=== PATIENT | male | born 1960 | race Caucasian/White ===

== ENCOUNTER 2023-06-15 07:11 | Observation (INO) ==
--- NOTE | 2023-05-18 14:56 | PAT Medication Instructions ---
Medication Instructions Date of Service May 18, 2023 Home Medications Medication Instructions Recorded Gato Gutierrez #1 ea 07/21/22 meloxicam 15 mg tablet 15 mg PO DAILY PRN Pain simethicone 125 mg capsule 125 mg PO DAILY PRN Gi Upset Glucosamine Chondroitin 2 tab PO QAM Metamucil 1 dose PO QAM cholecalciferol (vitamin D3) 50 mcg (2,000 unit) capsule (Vitamin D3) 100 mcg PO QAM cyanocobalamin (vitamin B-12) 3,000 mcg sublingual tablet 6,000 mcg sublingual QAM diphenhydramine 25 mg-acetaminophen 500 mg tablet (Tylenol PM Extra Strength) 2 tab PO HS PRN Pain glucosam-sod chondro-vit C-zita tablet 1 tab PO QAM multivitamin 1 tab PO QAM turmeric 400 mg capsule 500 mg PO QAM ASK your surgeon for instructions meloxicam 15 mg tablet 15 mg PO DAILY PRN Pain STOP taking 2 weeks before surgery (or as soon as possible if surgery is within 2 weeks) Glucosamine Chondroitin 2 tab PO QAM glucosam-sod chondro-vit C-zita tablet 1 tab PO QAM turmeric 400 mg capsule 500 mg PO QAM DO NOT take the morning of surgery simethicone 125 mg capsule 125 mg PO DAILY PRN Gi Upset Metamucil 1 dose PO QAM cholecalciferol (vitamin D3) 50 mcg (2,000 unit) capsule (Vitamin D3) 100 mcg PO QAM cyanocobalamin (vitamin B-12) 3,000 mcg sublingual tablet 6,000 mcg sublingual QAM multivitamin 1 tab PO QAM Take evening before surgery simethicone 125 mg capsule 125 mg PO DAILY PRN Gi Upset (if needed) diphenhydramine 25 mg-acetaminophen 500 mg tablet (Tylenol PM Extra Strength) 2 tab PO HS PRN Pain (if needed) Other Notes NOTHING TO EAT OR DRINK AFTER MIDNIGHT If you have any questions please call us at [phone] or [phone] or [phone] or [phone]
--- NOTE | 2023-05-21 08:20 | Anesthesiology Consultation ---
Date of Service May 21, 2023 Assessment & Plan (1) Encounter for pre-operative examination: - Infectious disease screening: Per assessment on 05/21/23: No known infectious disease contacts or current infectious disease symptoms. No noted recent Covid positive test. - Outpatient joint assessment: Pt currently scheduled for inpatient pathway. If surgeon requests review for outpatient joint pathway, patient is an acceptable candidate for outpatient joint program from anesthesia standpoint pending surgeon's office assessment that patient is motivated, has good support and completes [facility] Program preop requirements. Chart Review Chart Review: Acceptable Risk for Surgery and Patient seen in Pre Admission Testing Teaching & Discussion Pre-Anesthesia Teaching/Discussion Notes: Instructed NPO after midnight before surgery,except medications with 15 cc of water. Medication instructions provided according to the PAT guidelines. History Surgery Operation Date: 06/15/23 10:40 Proposed Procedures p Right Total Knee Arthroplasty - Jhonny Raza MD Height/Weight Height: 6 ft 2 in Weight: 95.1 kg Allergies Allergy/AdvReac Type Severity Reaction Status Date / Time No Known Allergies Allergy Verified 05/17/23 15:35 Medications Home Medications Medication Instructions Recorded Confirmed Last Taken Wheeled Walker #1 ea 07/21/22 04/02/23 Unknown meloxicam 15 mg tablet 15 mg PO DAILY PRN Pain 07/21/22 05/17/23 Unknown simethicone 125 mg capsule 125 mg PO DAILY PRN Gi Upset 07/21/22 05/17/23 Unknown Glucosamine Chondroitin 2 tab PO QAM 05/17/23 05/17/23 Unknown Metamucil 1 dose PO QAM 05/17/23 05/17/23 Unknown cholecalciferol (vitamin D3) 50 100 mcg PO QAM 05/17/23 05/17/23 Unknown mcg (2,000 unit) capsule (Vitamin D3) cyanocobalamin (vitamin B-12) 6,000 mcg sublingual QAM 05/17/23 05/17/23 Unknown 3,000 mcg sublingual tablet diphenhydramine 25 2 tab PO HS PRN Pain 05/17/23 05/17/23 Unknown mg-acetaminophen 500 mg tablet (Tylenol PM Extra Strength) glucosam-sod chondro-vit C-zita 1 tab PO QAM 05/17/23 05/17/23 Unknown tablet multivitamin 1 tab PO QAM 05/17/23 05/17/23 Unknown turmeric 400 mg capsule 500 mg PO QAM 05/17/23 05/17/23 Unknown Past Medical History Medical History Chronic back pain Spinal stenosis Osteoarthritis History of basal cell carcinoma (BCC) Hearing deficit BL BUSBY Sleep apnea CPAP (compliant) Exercise / Class Metabolic Activity II 4-5 Yardwork/Stairs/Walk up hill Past Family History Family History Other Rheumatoid arthritis Past Surgical History Surgical History History of tonsillectomy History of esophagogastroduodenoscopy (EGD) History of colonoscopy History of Mohs micrographic surgery for skin cancer H/O wrist surgery Right x 2 Past Anesthesia History No Hx of Anesthesia Complications and No Family Hx of Anesthesia Complications History of PONV No Hx of PONV and No Hx of Motion Sickness Social History Smoking Status: Never smoker Do You Dip or Chew Tobacco: No Hx Alcohol Use: Yes (Occasional glass of wine) Alcohol type: wine alcohol intake frequency: a few times a week Hx Substance Use: No substance use type: does not use Review of Systems Patient denies chest pain, shortness of breath, dyspnea on exertion, fever, chills, cough, wheezing, palpitations. Physical Exam Vital Signs VITALS BP 110/70 P 67 TEMP 98.4 SP02 96%RA RESP 18 PHYSICAL Full cervical extension range of motion. Full TMJ range of motion. TMD 3 finger breaths Mallampati Score 3 Lungs: clear throughout to auscultation Cardiac: regular rate and rhythm, no murmurs noted Spine: normal Carotid arteries: negative bruit Extremities: no LE edema Lab Results Anesthesia Preop Results Results Anesthesia Widget: PT 10.4 Seconds (9.0-12.0) 05/21/23 PTT 29 Seconds (21-31) 05/21/23 INR 0.9 (0.9-1.1) 05/21/23 Blood Type A Negative 05/21/23 Antibody Screen NEGATIVE 05/21/23 Testing Laboratory Results 05/11/23 WBC 4.2 H/H 15.2/45.9 PLATELETS 207 SODIUM 140 POTASSIUM 4.1 CHLORIDE 105 CO2 28 BUN 16 CREATININE 0.9 GLUCOSE 110 HGBA1C 5.9% Electrocardiogram Date: 05/16/23 Findings: + NSR @ (76) Chest X-Ray Date: 09/09/22 FINDINGS: No lines and tubes are seen. The cardiomediastinal silhouette is normal. The lungs are clear. No evidence of pleural effusion or pneumothorax. IMPRESSION: No acute abnormalities and in particular no radiographic evidence of pneumonia.
--- NOTE | 2023-06-09 09:02 | History & Physical Report ---
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 He has failed conservative measures. He was scheduled for knee replacement in the past but canceled due to COVID. He now like to proceed with right knee replacement. Plan: Orgran taken the operative right total knee replacement. The risks Mente this procedure explained the patient clued but not limited to DVT PE infection neurological and vascular bleeding palm pain limb range of motion sepsis fairly with symptoms incomplete relief of symptoms need for further surgery in the future. Patient understands and desires to proceed. Informed consent was obtained. Will plan on DVT prophylaxis utilizing thigh-high teds, SCDs, baby aspirin twice a day. He does use CPAP and he will bring that with him to the hospital. History of Present Illness Chief Complaint: . Persistent bilateral knee pain discomfort right side greater than left. Primary Care Provider: Amadeo Story NP-C . Patient is a 63-year-old gentleman who is retired from the [employer] who presents for further management of his knees. Discussed a long history of bilateral knee pain discomfort right side greater than left. He has been through extensive conservative treatment which is just has not helped. He was actually scheduled for surgery last July but canceled due to COVID illness. He then did a bit better for a while but now his symptoms have returned significantly. Describes global pain in his knee. Increased with weightbearing. He reports some intermittent instability as well. The right knee is quite a bit worse than the left. He now like to proceed with right knee replacement. Allergies Allergy/AdvReac Type Severity Reaction Status Date / Time No Known Allergies Allergy Verified 05/17/23 15:35 Home Medications Medication Instructions Recorded Confirmed Type Wheeled Walker #1 ea 07/21/22 04/02/23 Rx meloxicam 15 mg tablet 15 mg PO DAILY PRN Pain 07/21/22 05/17/23 History simethicone 125 mg capsule 125 mg PO DAILY PRN Gi Upset 07/21/22 05/17/23 History Glucosamine Chondroitin 2 tab PO QAM 05/17/23 05/17/23 History Metamucil 1 dose PO QAM 05/17/23 05/17/23 History cholecalciferol (vitamin D3) 50 100 mcg PO QAM 05/17/23 05/17/23 History mcg (2,000 unit) capsule (Vitamin D3) cyanocobalamin (vitamin B-12) 6,000 mcg sublingual QAM 05/17/23 05/17/23 History 3,000 mcg sublingual tablet diphenhydramine 25 2 tab PO HS PRN Pain 05/17/23 05/17/23 History mg-acetaminophen 500 mg tablet (Tylenol PM Extra Strength) glucosam-sod chondro-vit C-zita 1 tab PO QAM 05/17/23 05/17/23 History tablet multivitamin 1 tab PO QAM 05/17/23 05/17/23 History turmeric 400 mg capsule 500 mg PO QAM 05/17/23 05/17/23 History Past Med/Surg History Medical History Chronic back pain Spinal stenosis Osteoarthritis History of basal cell carcinoma (BCC) Hearing deficit BL BUSBY Sleep apnea CPAP (compliant) Surgical History History of tonsillectomy History of esophagogastroduodenoscopy (EGD) History of colonoscopy History of Mohs micrographic surgery for skin cancer H/O wrist surgery Right x 2 Family History Other Rheumatoid arthritis Social History Smoking Status: Never smoker Second Hand Exposure: No; Do You Dip or Chew Tobacco: No; Hx Alcohol Use: Yes (Occasional glass of wine) Alcohol type: wine Hx Substance Use: No Preferred Language: Mozambican Communication Ability: Effective Wastewater Project Manager Required: No Beliefs That Will Affect Care: None Current Living Situation: Spouse Feels Safe at Home: Yes Safety Concerns: Feels Safe At This Time Assistive Devices: Contacts, Glasses and Hearing Aid - Bilateral Review of Systems All systems reviewed & are unremarkable except as noted in HPI & below. Physical Exam . Physical examination was a pleasant healthy middle-age male. Today looks to be in good health. Examination of the knees reveal patient ambulates with a varus alignment to his knee. Fairly minimal limp. Examination of the right knee reveals a varus alignment with a tender is over the medial joint line. Small knee effusion. Little bit of bony hypertrophy medially. Range of motion is 5-1 20. No instability. No pain with hip motion for examination left knee reveals a similar varus alignment. Tenderness tenderness medially. Small bony hypertrophy medially. Small knee effusion. Range of motion 5-1 25. No instability. Constitutional WD/WN, vitals as above Neck trachea midline, no thyromegaly Respiratory normal respiratory effort, lungs clear to auscultation Cardiovascular RRR, no murmur, no edema Gastrointestinal (Abdomen) normal bowel sounds, soft, nontender, no hepatosplenomegaly Results & Data Results & Data Laboratory Results . Diagnostic Findings . X-rays due to both knees which show advanced bilateral knee arthritis. Got complete loss of medial joint space. The right side is a bit worse than the left. Osteophytes primarily medially. Some subchondral sclerosis as well. PG Care Time/CCT Total # of Minutes Spent Total Time Spent with Patient: Total time spent is greater than 50% in coordination of care (as documented) at patient's floor/unit and/or counseling patient: Coding Level of Care Code None Diagnoses Degenerative arthritis of knee, bilateral M17.0
[~2023-06-15 07:11] MED LIST: ACETAMINOPHEN 500 MG TAB PO SCH; BUPIVACAINE 0.5 % 5 MG/1 ML PF 10ML VIAL ONE; BUPIVACAINE LIPOSOME/PF 266 MG, BUPIVACAINE/EPINEPHRINE 50 ML, SODIUM CHLORIDE 0.9% PF ... INFIL SCH; CeleBREX 200 MG CAP PO SCH; EPINEPHrine INJ 1 MG/ML AMP ONE; FAMOTIDINE 20 MG TAB PO SCH; LR 500ML BOLUS, THEN 15ML/HR IV SCH; LR 60ML/HR IV SCH; METOCLOPRAMIDE HCL 10 MG TABLET PO SCH; ROPIVACAINE 0.5% 5 MG/ML 30 ML VIAL ONE; Scopolamine 1 MG TDSY TD SCH; TRANEXAMIC ACID 1,000 MG **IV Intra-op IV SCH; ceFAZolin 2000MG 2,000 MG/15 ML SYR IV SCH
[2023-06-15] MEDS ORDERED: PROPOFOL IV EMULSION 10 MG/ML 20 ML VIAL IV ONE (07:43)
[2023-06-15] MEDS ORDERED: LIDOCAINE 2% 2 ML VIAL/AMP(20MG/ML) INFIL ONE (08:07)
[2023-06-15] MEDS ORDERED: MIDAZOLAM HCL 1 MG/ML 2ML VIAL ONE (08:46)
[2023-06-15] MEDS ORDERED: fentaNYL citrate PF 100 MCG/2 ML VIAL ONE (08:47)
--- NOTE | 2023-06-15 08:52 | History & Physical Bridge Note ---
Date of Service June 15, 2023 History & Physical Bridge Note I have examined the patient, reviewed the History & Physical and in the interval since the performance of the History & Physical I have noted the following changes of clinical significance: no changes noted
[2023-06-15] MEDS ORDERED: SODIUM CHLORIDE 0.9% PF 50 ML VIAL ONE (08:59)
[2023-06-15] MEDS ORDERED: BUPIVACAINE/EPINEPHRINE 0.25% 1:200,000 30 ML VIAL ONE (08:59)
[2023-06-15] MEDS ORDERED: BUPIVACAINE LIPOSOME 1.3% 266 MG/20 ML VIAL ONE (09:00)
[2023-06-15] MEDS ORDERED: ONDANSETRON INJ 2 MG/ML 2 ML VIAL ONE (09:35)
[2023-06-15] MEDS ORDERED: ATROPINE SULFATE 0.1 MG/ML 10ML SYR IV PRN (10:05)
[2023-06-15] MEDS ORDERED: NALOXONE HCL 0.4 MG/1 ML VIAL/CARP IV PRN ×2 (10:05→12:41)
[2023-06-15] MEDS ORDERED: HYDROmorphone INJ 1 MG/ML SYRINGE IV PRN (10:05)
[2023-06-15] MEDS ORDERED: ePHEDrine sulfate 50 MG/ML AMP IV PRN (10:05)
[2023-06-15] MEDS ORDERED: PROMETHAZINE HCL 12.5 MG in SODIUM CHLORIDE 0.9% 50 ML IV PRN (10:05)
[2023-06-15] MEDS ORDERED: FLUMAZENIL 0.1 MG/1 ML 10 ML VIAL IV PRN (10:05)
[2023-06-15] MEDS ORDERED: ONDANSETRON INJ 2 MG/ML 2 ML VIAL IV PRN ×2 (10:05→12:41)
[2023-06-15] MEDS ORDERED: fentaNYL citrate PF 100 MCG/2 ML VIAL IV PRN (10:05)
[2023-06-15] MEDS ORDERED: ePHEDrine sulfate 50 MG/5 ML SYR ONE (10:31)
--- NOTE | 2023-06-15 11:14 | Operative Report ---
PG Post Operative Report Pre & Post Diagnosis Operation Date: 06/15/23 08:50 Pre-Op Diagnosis: Right Knee Advanced Degenerative Joint Disease Post-Op Diagnosis: Right Knee Advanced Degenerative Joint Disease I identified the patient and participated in the time-out.: Yes Procedure Operation Date: 06/15/23 08:50 Actual Procedures p Right Total Knee Arthroplasty(Right) - Jhonny Raza MD Surgeon Jhonny Raza MD Powerhouse Tender Brian Bardales PA-C Estimated Blood Loss 50 Findings Consistent with Post-Op Diagnosis Operative findings reveal advanced right knee DJD with extensive grade 4 [id number] disease of the medial and patellofemoral compartments. The lateral compartment reveals a fairly mild changes. He had a fixed varus deformity to his knee. Moderate-sized joint effusion. Specimens Right knee sent for pathology. 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 Been through extensive conservative treatment which became less successful over time. He was actually scheduled for knee replacement last year but had to cancel as he came down with COVID. He did okay for a while but symptoms continue to progress. He is now like to proceed with total knee arthroplasty on the right knee. Description of Procedure Operative implants consist several: 1 Biomet Vanguard size 75 right posterior stabilized femoral component. 2. Biomet size 79 tibial tray. 3. 10 mm post stabilized polyethylene insert. 4. 34 x 8 and half all poly patella. The patient was taken the operating, identified, placed on the operating table in the supine position. All contact areas were appropriately padded. IV antibiotics tried by anesthesia team. A spinal anesthetic and adductor canal block had been provided in the holding area. The right Tetrick was then placed. The right lower extremity was then prepped and draped in usual sterile fashion. The right leg was elevated and exsanguinated with use of an Esmarch and the turn was placed at 300 mmHg. An anterior approach to the right knee was then performed through a longitudinal incision centered over the patella. Sharp dissection Through subcutaneous tissue down to the extensor mechanism. A medial parapatellar arthrotomy incision was made. Some subperiosteal dissection was carried out medially. The fat pad was dissected from Neath patella tendon. Lateral patellofemoral ligament was released. Patella subluxated laterally and the knee was flexed. The osteophytes taken off the distal femur. The ACL and PCL were then released from distal femur the tibia subluxated anteriorly. External treatment LYMErix was then placed in the interface the tibia and adjusted 14 mm medially. Proximal tibial cut was made remove about a millimeter of bone at most from the most deficient aspect of the medial side. Some osteophytes taken off medially. Tibia sized to a size 79. Attention drawn the femur. The distal femur was then with a sharp drill. Intramedullary canal was suction. A right 6 degree valgus cutting guide was placed. Distal femoral cutting block was pinned in place. Distal femoral cut was made to take an additional 3 mm of bone off distal femur. The femur was then sized to a size 75. The AP cutting block was pinned parallel to the epicondylar axis which was 5 degrees of external rotation. The anterior cut, anterior chamfer, posterior cut, posterior chamfer cuts were made. The box cutting guide was placed in just slight lateral and the box cut was made. The knee was flexed. The remnants of the medial and lateral menisci were excised. The osteophytes were taken off the posterior aspect the femur. A trial femoral component was placed. The tibial tray was pinned Emily external rotation and the drill and stem punch were used to create defect in proximal tibia for the tibial tray. The knee was then trialed and 10 mm insert fit most appropriately. Attention drawn the patella. The patella is cleaned of all soft tissues. Patella thickness measured 26 mm in thickness was cut down to 15. Was sized to a size 34 patella. The lug holes were drilled for 34 patella. The lateral osteophytes removed. Patella button was placed. Knee was taken through range of motion patella tracked nicely with no thumbs test. Attention drawn to placing permanent components. Nupathe all trial components were removed. Bone plug was placed in the distal femur limit blood loss. A double batch Palacos G cement was mixed. Size 75 right posterior stabilized femoral component, a size 79 tibial tray, a 10 mm pro stabilized polyethylene insert, and a 34 x 8 and half all poly patella then cemented in place. Knee was brought out into full extension till cement hardened. Final cement check was then performed. Pericapsular tissues were injected with total of 100 cc of combination of 20 cc of Exparel, 30 cc normal saline, 50 cc of quarter percent Marcaine with epinephrine. Patient did receive 1 g tranexamic acid. The tourniquet was let down for final tourniquet time of 59 minutes. Hemostasis assured use electrocautery. Extensor Metros then closed with combination 1 PDS suture #1 Vicryl suture in a [id number] fashion. Extensor Meclomen checked found to be intact the subcutaneous tissue then closed with 2 Dexon suture in a buried interrupted fashion skin was closed skin gabriel. Leg was then cleaned and dried and sterile dressing was Xeroform, 4 fours, sterile cast padding, Florencio bandage were applied. Patient then transferred to the recovery room in stable condition. Patient tolerated procedure well and there were no complications. Brian Bardales, my physician assistant professor in family studies, was present for the entire procedure. His assistance was essential and required for appropriate patient positioning, prepping and draping, surgical exposure, performing the technical details of the operation, placement the implants, closure of the wound, and placement of the sterile bandage. I attest to the content of the Intraoperative Record and any orders documented therein. Any exceptions are noted below.
--- NOTE | 2023-06-15 11:39 | XRay Report ---
TWO VIEWS RIGHT KNEE CLINICAL HISTORY: Postoperative examination. FINDINGS: AP and crosstable lateral portable views of the right knee are obtained. A right knee arthr oplasty is in near anatomic alignment. There has been undersurface remodeling of the patella. No acut e fracture is seen. There are expected postoperative changes around the knee including skin clips, s oft tissue edema, and subcutaneous gas. IMPRESSION: Expected postoperative changes status post right knee arthroplasty. No acute fracture is seen. ACT 112: Negative or not required by law. Electronically signed by: Vikash Hair M.D. 06/15/2023 11:37 AM
[2023-06-15] MEDS ORDERED: NON-FORMULARY MEDICATION (Diphenhydramine-Acetaminophen [Tylenol Pm Extra Strength] 25-500 PO PRN (12:41)
[2023-06-15] MEDS ORDERED: ALUMINUM/MAGNESIUM SUSP 30 ML UDC PO PRN (12:41)
[2023-06-15] MEDS ORDERED: SIMETHICONE 80 MG CHEW PO PRN (12:41)
[2023-06-15] MEDS ORDERED: oxyCODONE HCL IR 5 MG TAB (IMMEDIATE RELEASE) PO PRN (12:41)
[2023-06-15] MEDS ORDERED: MAGNESIUM HYDROXIDE SUSP 30 ML UDC PO PRN (12:41)
[2023-06-15] MEDS ORDERED: METOCLOPRAMIDE HCL INJ 5 MG/ML 2 ML VIAL IV PRN (12:41)
[2023-06-15] MEDS ORDERED: HYDROmorphone INJ 0.5 MG/0.5 ML SYR IV PRN (12:41)
[2023-06-15] MEDS ORDERED: diphenhydrAMINE Capsule 25 MG CAP PO PRN (12:41)
[2023-06-15] MEDS ORDERED: bisacodyL 10 MG SUPP PR PRN (12:41)
--- NOTE | 2023-06-15 13:08 | Anesthesiology Progress Note ---
Date of Service June 15, 2023 Anesthesia Post Procedure Vital Signs Vital Signs: Temp Pulse Pulse Resp BP Pulse Ox O2 Del Method 06/15/23 12:50 69 19 137/73 98 Room Air 06/15/23 12:35 70 16 137/77 97 Room Air 06/15/23 12:20 73 12 127/85 95 Room Air 06/15/23 12:05 59 L 16 120/68 95 Room Air 06/15/23 11:50 59 L 14 108/72 96 Room Air 06/15/23 11:40 66 13 115/72 96 Room Air 06/15/23 11:30 60 18 110/63 96 Room Air 06/15/23 11:20 62 18 107/62 96 Room Air 06/15/23 11:14 36.2 C L 72 15 113/65 95 Room Air 06/15/23 07:20 36.5 C 81 22 145/80 H 94 Room Air Transfer of Care Handoff Completed per policy Notes Mental Status: alert / awake / arousable Patient Amnestic to Procedure: Yes Nausea / Vomiting: adequately controlled Pain: adequately controlled Airway Patency, RR, SpO2: stable & adequate BP & HR: stable & adequate Hydration State: stable & adequate Anesthetic Complications: no major complications apparent
--- NOTE | 2023-06-15 13:12 | Anesthesiology Progress Note ---
Date of Service June 15, 2023 Anesthesia Post Procedure Vital Signs Vital Signs: Temp Pulse Pulse Resp BP Pulse Ox O2 Del Method 06/15/23 12:50 69 19 137/73 98 Room Air 06/15/23 12:35 70 16 137/77 97 Room Air 06/15/23 12:20 73 12 127/85 95 Room Air 06/15/23 12:05 59 L 16 120/68 95 Room Air 06/15/23 11:50 59 L 14 108/72 96 Room Air 06/15/23 11:40 66 13 115/72 96 Room Air 06/15/23 11:30 60 18 110/63 96 Room Air 06/15/23 11:20 62 18 107/62 96 Room Air 06/15/23 11:14 36.2 C L 72 15 113/65 95 Room Air 06/15/23 07:20 36.5 C 81 22 145/80 H 94 Room Air Transfer of Care Handoff Completed per policy Notes Mental Status: alert / awake / arousable Patient Amnestic to Procedure: Yes Nausea / Vomiting: adequately controlled Pain: adequately controlled Airway Patency, RR, SpO2: stable & adequate BP & HR: stable & adequate Hydration State: stable & adequate Neuraxial Anesthesia: was administered and sensory block is resolving Anesthetic Complications: no major complications apparent
[2023-06-15] MEDS: SODIUM CHLORIDE 0.9% 1,000 ML IV SCH ×2 (13:18→23:52)
[2023-06-15] MEDS: KETOROLAC 30 MG/ML VIAL IV SCH ×2 (14:30→20:03)
[2023-06-15] MEDS: ceFAZolin 2000MG 2,000 MG/15 ML SYR IV SCH (16:22)
[2023-06-15] MEDS: ACETAMINOPHEN 500 MG TAB PO SCH ×2 (16:23→23:19)
[2023-06-15] MEDS: Scopolamine CHECK PATCH PLACEMENT SCH (16:23)
[2023-06-15] MEDS: ASCORBIC ACID 500 MG TAB PO SCH (17:22)
[2023-06-15] MEDS ORDERED: TRANEXAMIC ACID / 0.7% NACL 1,000 MG/100 ML BAG IV SCH (18:00)
[2023-06-15] MEDS: DOCUSATE SODIUM 100 MG CAP PO SCH (20:04)
[2023-06-15] MEDS: ASPIRIN 81 MG ECTAB PO SCH (20:04)
[2023-06-15] MEDS ORDERED: SENNA 8.6 MG TAB PO SCH ×2 (21:00)
[2023-06-16] MEDS: ceFAZolin 2000MG 2,000 MG/15 ML SYR IV SCH (01:07)
[2023-06-16] MEDS: KETOROLAC 30 MG/ML VIAL IV SCH ×2 (01:08→08:49)
[2023-06-16] MEDS: Scopolamine CHECK PATCH PLACEMENT SCH ×2 (01:08→08:52)
[2023-06-16 06:14] LABS: Hematocrit (blood only) 34.3 % (42.0-52.0); Hemoglobin 11.7 g/dl (14.0-18.0); Mean Corpuscular Hgb Conc 34.1 g/dL (32.0-36.0); Mean Corpuscular Volume 87.9 fL (80.0-100.0); Mean Platelet Volume 9.8 fL (9.4-12.4); Platelet Count 170 K/uL (130-400); RDW Coefficient of Variation 12.7 % (11.5-14.5); RDW Standard Deviation 40.7 fL (36.4-46.3); White Blood Count 5.68 K/ul (4.8-10.8)
[2023-06-16 06:17] LABS: BUN Creatinine Ratio 17.6 (10-20); Calcium 9.1 mg/dl (8.6-10.3); Creatinine Clr Calc Pharmacy 110.9 ml/min; Est GFR (African American) 108.2 ml/min; Est GFR (Non-African American) 93.4 ml/min; Potassium 4.2 mmol/L (3.5-5.1)
[2023-06-16] MEDS: ACETAMINOPHEN 500 MG TAB PO SCH (07:51)
[2023-06-16] MEDS ORDERED: dexAMETHasone 10 MG in SYRINGE 0 ML IV SCH (08:00)
--- NOTE | 2023-06-16 08:20 | Surgery Progress Note ---
Date of Service June 16, 2023 Assessment & Plan (1) Status post right knee replacement: Plan: 63-year-old gentleman postop day 1 from a right knee replacement doing well. Pain is controlled. He is neurologically intact. Plan: 1. DVT prophylaxis including thigh-high teds, SCDs, aspirin twice a day. 2. PT-OT. Weight-bear as tolerated. Right total knee protocol. 3. Pain control doing well with current pain regimen. 4. Disposition plan to discharge to home with some home health later today if he does okay in therapy. Admission and Anticipated Discharge Date Admission Date: June 15, 2023 Subjective 63-year-old gentleman postop day 1 from right knee replacement. He is doing well. Some moderate amount of pain but manageable. No chest pain or shortness of breath. Not feeling dizzy or lightheaded. He is hoping to go home today. Physical Exam Physical Exam: Physical examination was a pleasant middle-age male. He was walk around the room with some assistance when I visited him this morning. Examination of the right leg reveals the dressing be clean dry and intact. Leg is well aligned. He can do a straight leg raise with quite a bit of effort. He can dorsiflex and plantarflex his foot appropriately. He is neurologically intact. Respiratory: normal respiratory effort, lungs clear to auscultation Cardiovascular: RRR, no murmur, no edema Gastrointestinal (Abdomen): normal bowel sounds, soft, nontender, no hepatosplenomegaly Results & Data Vital Signs (Past 12 Hours) Vital Signs Temp Pulse Resp BP Pulse Ox O2 Del Method 06/16/23 07:54 37 C 70 16 113/62 96 Room Air 06/16/23 03:51 36.8 C 63 16 121/73 95 Room Air 06/15/23 23:01 37.0 C 75 16 132/74 94 Room Air Laboratory Results Hemoglobin 11.7. Hematocrit 34.3. Electrolytes are stable PG Care Time/CCT Total # of Minutes Spent Total Time Spent with Patient: Total time spent is greater than 50% in coordination of care (as documented) at patient's floor/unit and/or counseling patient: Coding Level of Care Code 47728 Post Operative Follow-Up Diagnoses Status post right knee replacement Z96.651
[2023-06-16] MEDS: ASPIRIN 81 MG ECTAB PO SCH (08:50)
[2023-06-16] MEDS: DOCUSATE SODIUM 100 MG CAP PO SCH (08:50)
[2023-06-16] MEDS: ASCORBIC ACID 500 MG TAB PO SCH (08:51)
[2023-06-16] MEDS ORDERED: CYANOCOBALAMIN (B-12) 2,500 MCG TABLET SL SCH (09:00)
[2023-06-16] MEDS ORDERED: MULTIVITAMIN TAB PO SCH (09:00)
[2023-06-16] MEDS ORDERED: PSYLLIUM or GUAR GUM FIBER POWDER PACKET PO SCH (09:00)
[2023-06-16] MEDS ORDERED: NON-FORMULARY MEDICATION (Turmeric 400 mg Capsule) PO SCH (09:00)
[2023-06-16] MEDS ORDERED: GLUCOSAMINE CHONDROITIN PO SCH (09:00)
[2023-06-16] MEDS ORDERED: CHOLECALCIFEROL 1,000 UNITS 25 MCG TAB PO SCH (09:00)
[2023-06-16] MEDS ORDERED: NON-FORMULARY MEDICATION (Amino Acids [Amino Acid] Capsule) PO SCH (09:00)
[2023-06-16] MEDS ORDERED: TAMSULOSIN HCL 0.4 MG CAP PO SCH (09:00)
[2023-06-16] MEDS ORDERED: NON-FORMULARY MEDICATION (Multivitamin Tablet) PO SCH (09:00)
[2023-06-16] MEDS ORDERED: [UNRECOGNIZED DRUG - OTHER] PO SCH (09:00)
== END 2023-06-16 11:32 | disposition home health service (06) ==
LOC: PACUINP 07:11 → ASU 07:11 → 3E 14:43

== ENCOUNTER 2024-06-27 05:13 | Observation (INO) ==
--- NOTE | 2024-05-01 14:48 | PAT Medication Instructions ---
Medication Instructions Date of Service May 01, 2024 Home Medications Medication Instructions Recorded Gato Walker #1 ea 07/21/22 acetaminophen 500 mg tablet 1,000 mg (2 x 500 mg) PO TID pain 06/13/23 (Tylenol Extra Strength) 30 days #180 tabs amoxicillin 500 mg tablet 2,000 mg (4 x 500 mg) PO ONCE #4 09/14/23 tabs cholecalciferol (vitamin D3) 50 mcg (2,000 unit) capsule (Vitamin D3) 100 mcg PO QAM cyanocobalamin (vitamin B-12) 3,000 mcg sublingual tablet 6,000 mcg sublingual QAM glucosam-sod chondro-vit C-zita tablet 1 tab PO QAM multivitamin 1 tab PO QAM turmeric 400 mg capsule 500 mg PO QAM acetaminophen 500 mg tablet (Tylenol Extra Strength) 1,000 mg (2 x 500 mg) PO TID pain amoxicillin 500 mg tablet 2,000 mg (4 x 500 mg) PO ONCE psyllium husk 3.4 gram/5.4 gram oral powder (Metamucil) 1 tbsp PO BID Continue as directed amoxicillin 500 mg tablet 2,000 mg (4 x 500 mg) PO ONCE STOP taking 2 weeks before surgery (or as soon as possible if surgery is within 2 weeks) glucosam-sod chondro-vit C-zita tablet 1 tab PO QAM turmeric 400 mg capsule 500 mg PO QAM DO NOT take the morning of surgery cholecalciferol (vitamin D3) 50 mcg (2,000 unit) capsule (Vitamin D3) 100 mcg PO QAM cyanocobalamin (vitamin B-12) 3,000 mcg sublingual tablet 6,000 mcg sublingual QAM multivitamin 1 tab PO QAM psyllium husk 3.4 gram/5.4 gram oral powder (Metamucil) 1 tbsp PO BID Take morning of surgery With a small sip of water, OTHERWISE NOTHING TO EAT OR DRINK AFTER MIDNIGHT: acetaminophen 500 mg tablet (Tylenol Extra Strength) 1,000 mg (2 x 500 mg) PO TID pain (if needed) Take evening before surgery acetaminophen 500 mg tablet (Tylenol Extra Strength) 1,000 mg (2 x 500 mg) PO TID pain (if needed) psyllium husk 3.4 gram/5.4 gram oral powder (Metamucil) 1 tbsp PO BID Other Notes If you have any questions please call us at [phone] or [phone] or [phone] or [phone]
--- NOTE | 2024-05-05 13:43 | Anesthesiology Consultation ---
Date of Service May 05, 2024 Assessment & Plan (1) Encounter for pre-operative examination: - Infectious disease screening: Per assessment on 05/05/24- No known recent infectious disease contacts or current infectious disease symptoms. - Outpatient joint assessment: Pt currently scheduled for inpatient pathway. If surgeon requests review for outpatient joint pathway, patient is an acceptable candidate for outpatient joint program from anesthesia standpoint pending surgeon's office assessment that patient is motivated, has good support and completes Same Day Joint Program preop requirements. - S/P Right TKA (06/15/23): SAB at L3-4 + regional at [facility] Chart Review Chart Review: Acceptable Risk for Surgery and Patient seen in Pre Admission Testing Teaching & Discussion Pre-Anesthesia Teaching/Discussion Notes: Instructed NPO after midnight before surgery,except medications with 15 cc of water. Medication instructions provided according to the PAT guidelines. History Surgery Operation Date: 06/27/24 07:00 Proposed Procedures p Left Total Knee Arthroplasty - Jhonny Raza MD Height/Weight Height: 6 ft 1 in Weight: 98.1 kg Allergies Allergy/AdvReac Type Severity Reaction Status Date / Time No Known Allergies Allergy Verified 05/01/24 07:50 Medications Home Medications Medication Instructions Recorded Confirmed Last Taken Wheeled Walker #1 ea 07/21/22 03/04/24 Unknown cholecalciferol (vitamin D3) 50 100 mcg PO QAM 05/17/23 05/01/24 06/14/23 07:00 mcg (2,000 unit) capsule (Vitamin D3) cyanocobalamin (vitamin B-12) 6,000 mcg sublingual QAM 05/17/23 05/01/24 06/14/23 07:30 3,000 mcg sublingual tablet glucosam-sod chondro-vit C-zita 1 tab PO QAM 05/17/23 05/01/24 06/07/23 tablet multivitamin 1 tab PO QAM 05/17/23 05/01/24 06/14/23 07:00 turmeric 400 mg capsule 500 mg PO QAM 05/17/23 05/01/24 Unknown acetaminophen 500 mg tablet 1,000 mg (2 x 500 mg) PO TID pain 06/13/23 05/01/24 06/14/23 12:00 (Tylenol Extra Strength) 30 days #180 tabs amoxicillin 500 mg tablet 2,000 mg (4 x 500 mg) PO ONCE #4 09/14/23 05/01/24 Unknown tabs psyllium husk 3.4 gram/5.4 gram 1 tbsp PO BID 05/01/24 05/01/24 Unknown oral powder (Metamucil) Past Medical History Medical History Chronic back pain Degenerative arthritis of knee, bilateral Hearing deficit BL BUSBY History of basal cell carcinoma (BCC) Left knee DJD Osteoarthritis Sleep apnea CPAP (compliant) Spinal stenosis Exercise / Class Metabolic Activity II 4-5 Yardwork/Stairs/Walk up hill (one FS: No CP, no SOB) Past Family History Family History Other No family history of adverse response to anesthesia Rheumatoid arthritis Past Surgical History Surgical History H/O wrist surgery Right x2 History of colonoscopy History of esophagogastroduodenoscopy (EGD) History of Mohs micrographic surgery for skin cancer History of right knee joint replacement Right TKA (06/15/23): SAB at L3-4 + regional at [facility] History of tonsillectomy Past Anesthesia History No Hx of Anesthesia Complications and No Family Hx of Anesthesia Complications History of PONV No Hx of PONV and No Hx of Motion Sickness Social History Smoking Status: Never smoker Do You Dip or Chew Tobacco: No Hx Alcohol Use: Yes (Occasional glass of wine) Alcohol type: wine alcohol intake frequency: a few times a week Hx Substance Use: No substance use type: does not use Review of Systems Patient denies chest pain, shortness of breath, dyspnea on exertion, fever, chills, cough, wheezing, palpitations. Physical Exam Vital Signs BP 115/75 P 64 TEMP 98.3 SP02 96%RA RESP 18 Physical Full cervical extension range of motion. Full TMJ range of motion. TMD 3 finger breaths Mallampati Score III (redness surrounding left upper molars- per patient, recently burnt while eating hot food. Advised patient to contact surgeon if not at baseline prior to surgery) Dentition: intact, implant Lungs: clear throughout to auscultation Cardiac: regular rate and rhythm, no murmurs noted Spine: normal Carotid arteries: negative bruit Extremities: no LE edema Lab Results Anesthesia Preop Results Results Anesthesia Widget: WBC 3.59 K/ul (4.8-10.8) L 05/05/24 Hgb 14.6 g/dl (14.0-18.0) 05/05/24 Hct 41.9 % (42.0-52.0) L 05/05/24 Plt 227 K/uL (130-400) 05/05/24 Na 139 mmol/L (136-145) 05/05/24 K 3.9 mmol/L (3.5-5.1) 05/05/24 Cl 105 mmol/L (98-107) 05/05/24 CO2 27 mmol/L (21-32) 05/05/24 BUN 16 mg/dl (6-23) 05/05/24 Creat 0.78 mg/dl (0.6-1.4) 05/05/24 Glucose Level 87 mg/dl (70-99(Fasting)) 05/05/24 PT 10.5 Seconds (9.0-12.0) 05/05/24 PTT 29 Seconds (21-31) 05/05/24 INR 1.0 (0.9-1.1) 05/05/24 Blood Type A Negative 05/05/24 Antibody Screen NEGATIVE 05/05/24 Testing Electrocardiogram Date: 05/05/24 Findings: + NSR @ (65) Chest X-Ray Date: 05/05/24 IMPRESSION: Normal chest X-ray. No acute cardiopulmonary abnormalities identified. No changes on interval.
--- NOTE | 2024-06-23 07:46 | History & Physical Report ---
Date of Service June 23, 2024 Assessment & Plan (1) Left knee DJD: 64-year-old very healthy gentleman a year out from a right knee replacement with advanced left knee DJD. Is failed conservative treatment. He like to have his left knee replaced. Plan: We are going to take him to the operating room and do a left knee replacement. The risks Mente this procedure explained. He understands. Informed consent was obtained. Use aspirin for DVT prophylaxis. He is dorothy stay in the hospital overnight and discharge postoperative day 1. He will have home health for the first 2 weeks. (2) History of right knee joint replacement: History of Present Illness Chief Complaint: . Persistent left knee pain and discomfort. Primary Care Provider: PLOI AkbarC . The patient is a 64-year-old gentleman now just about a year out from a right knee replacement who presents for surgical treatment of his left knee. Ricki a long history of bilateral knee pain discomfort describes gotten worse over time. Is been through extensive conservative treatment in the past which has become less successful. He had his right knee replaced about a year ago and is done well from this. He has continued to have have progressive left knee pain discomforts which are limiting his activities. He now like to proceed with surgical treatment of his left knee. Allergies Allergy/AdvReac Type Severity Reaction Status Date / Time No Known Allergies Allergy Verified 05/01/24 07:50 Home Medications Medication Instructions Recorded Confirmed Type Wheeled Walker #1 ea 07/21/22 03/04/24 Rx cholecalciferol (vitamin D3) 50 100 mcg PO QAM 05/17/23 05/01/24 History mcg (2,000 unit) capsule (Vitamin D3) cyanocobalamin (vitamin B-12) 6,000 mcg sublingual QAM 05/17/23 05/01/24 History 3,000 mcg sublingual tablet glucosam-sod chondro-vit C-zita 1 tab PO QAM 05/17/23 05/01/24 History tablet multivitamin 1 tab PO QAM 05/17/23 05/01/24 History turmeric 400 mg capsule 500 mg PO QAM 05/17/23 05/01/24 History acetaminophen 500 mg tablet 1,000 mg (2 x 500 mg) PO TID pain 06/13/23 05/01/24 Rx (Tylenol Extra Strength) 30 days #180 tabs psyllium husk 3.4 gram/5.4 gram 1 tbsp PO BID 05/01/24 05/01/24 History oral powder (Metamucil) amoxicillin 500 mg tablet 2,000 mg (4 x 500 mg) PO ONCE #4 05/19/24 Rx tabs Past Med/Surg History Problem List Medical History Left knee DJD Degenerative arthritis of knee, bilateral Chronic back pain Spinal stenosis Osteoarthritis History of basal cell carcinoma (BCC) Hearing deficit BL BUSBY Sleep apnea CPAP (compliant) Surgical History History of right knee joint replacement Right TKA (06/15/23): SAB at L3-4 + regional at [facility] History of tonsillectomy History of esophagogastroduodenoscopy (EGD) History of colonoscopy History of Mohs micrographic surgery for skin cancer H/O wrist surgery Right x2 Family History Other No family history of adverse response to anesthesia Rheumatoid arthritis Social History Smoking Status: Never smoker Second Hand Exposure: No; Do You Dip or Chew Tobacco: No; Hx Alcohol Use: Yes (Occasional glass of wine) Alcohol type: wine Hx Substance Use: No Preferred Language: Norwegian Communication Ability: Effective Health Policy Analyst Required: No Beliefs That Will Affect Care: None Current Living Situation: Spouse Feels Safe at Home: Yes Assistive Devices: Contacts, Glasses and Hearing Aid - Bilateral Review of Systems All systems reviewed & are unremarkable except as noted in HPI & below. Physical Exam . Physical examination was a healthy pleasant middle-age male. Looks in excellent health. Examination of the left knee reveal patient ambulates independently. His Varus alignment to his knee with some bone hypertrophy medially. He has about a 5 degree flexion contracture bends about 120. No instability. No particular pain with hip motion. He is tender with medial joint line with some bony hypertrophy there. Examination of the right knee reveals well-healed incision. Very mild swelling. Range of motion 0-1 20. No instability. No pain with hip motion. Constitutional WD/WN, vitals as above Neck trachea midline, no thyromegaly Respiratory normal respiratory effort, lungs clear to auscultation Cardiovascular RRR, no murmur, no edema Results & Data Results & Data Laboratory Results . Diagnostic Findings . X-rays of the left knee were reviewed. Shows advanced left knee medial compart ment arthritis. Got complete loss of the medial joint space on the 40 degree flexion films. He is got bony approach for medially. Discussed some cystic changes around the tibial tubercle and tibial eminence. Right knee replacement looks very good position without problems. PG Care Time/CCT Total # of Minutes Spent Total Time Spent with Patient: Total time spent is greater than 50% in coordination of care (as documented) at patient's floor/unit and/or counseling patient: Coding Level of Care Code None Diagnoses Left knee DJD M17.12 History of right knee joint replacement Z96.651
[2024-06-27] MEDS: LR 500ML BOLUS, THEN 15ML/HR IV SCH (05:54)
[2024-06-27] MEDS: CeleBREX 200 MG CAP PO SCH (05:56)
[2024-06-27] MEDS: ACETAMINOPHEN 500 MG TAB PO SCH ×2 (05:56→14:25)
[2024-06-27] MEDS: Scopolamine 1 MG TDSY TD SCH (05:56)
[2024-06-27] MEDS: METOCLOPRAMIDE HCL 10 MG TABLET PO SCH (05:56)
[2024-06-27] MEDS: FAMOTIDINE 20 MG TAB PO SCH (05:56)
[2024-06-27] MEDS: LR 60ML/HR IV SCH (05:57)
[2024-06-27] MEDS: dexAMETHasone**PF** 10 MG/ML VIAL IV SCH (05:57)
[2024-06-27] MEDS ORDERED: ROPIVACAINE 0.5% 5 MG/ML 30 ML VIAL ONE (06:21)
[2024-06-27] MEDS ORDERED: fentaNYL citrate PF 100 MCG/2 ML VIAL ONE (06:36)
[2024-06-27] MEDS ORDERED: MIDAZOLAM HCL 1 MG/ML 2ML VIAL ONE ×3 (06:36→07:19)
[2024-06-27] MEDS ORDERED: ATROPINE SULFATE 0.1 MG/ML 10ML SYR IV PRN (06:38)
[2024-06-27] MEDS ORDERED: ePHEDrine sulfate 50 MG/ML AMP IV PRN (06:38)
[2024-06-27] MEDS ORDERED: KETOROLAC 30 MG/ML VIAL IV PRN (06:38)
[2024-06-27] MEDS ORDERED: HYDROmorphone INJ 1 MG/ML SYRINGE IV PRN (06:38)
[2024-06-27] MEDS ORDERED: ONDANSETRON INJ 2 MG/ML 2 ML VIAL IV PRN ×2 (06:38→10:39)
--- NOTE | 2024-06-27 06:49 | History & Physical Bridge Note ---
Date of Service June 27, 2024 History & Physical Bridge Note I have examined the patient, reviewed the History & Physical and in the interval since the performance of the History & Physical I have noted the following changes of clinical significance: no changes noted
[2024-06-27] MEDS: ceFAZolin 2000MG 2,000 MG/15 ML SYR IV SCH ×2 (07:09→14:21)
[2024-06-27] MEDS ORDERED: PROPOFOL IV EMULSION 10 MG/ML 100 ML VIAL IV ONE (07:18)
[2024-06-27] MEDS ORDERED: ePHEDrine sulfate 50 MG/5 ML SYR ONE (07:23)
[2024-06-27] MEDS ORDERED: PHENYLEPHRINE 100MCG/ML 5ML SYR ONE (07:23)
[2024-06-27] MEDS: ORTHO JOINT ANESTHETIC ONE (07:39)
[2024-06-27] MEDS: TRANEXAMIC ACID 1,000 MG **IV Intra-op IV SCH (07:52)
[2024-06-27] MEDS: ROPIV 0.5% 246mg, Ketorolac 30mg, EPINEPHrine 0.5mg in NSS INFIL SCH (08:25)
--- NOTE | 2024-06-27 08:55 | Operative Report ---
PG Post Operative Report Pre & Post Diagnosis Operation Date: 06/27/24 07:00 Pre-Op Diagnosis: left knee degenerative joint disease Post-Op Diagnosis: left knee degenerative joint disease I identified the patient and participated in the time-out.: Yes Procedure Operation Date: 06/27/24 07:00 Actual Procedures p Left Total Knee Arthroplasty(Left) - Jhonny Raza MD Surgeon Jhonny Raza MD Psychological Science Professor Brian Bardales PA-C Estimated Blood Loss 50 Findings Consistent with Post-Op Diagnosis Operative findings were advanced left knee DJD. He had pretty extensive grade 4 [id number] disease of the medial and patellofemoral compartments. He had a varus deformity to his knee. Moderate-sized knee joint effusion. Specimens Left knee sent for pathology. Anesthesia Type Spinal MAC Complications none Disposition Accompanied Patient To Recovery: No Indications The patient is a 64-year-old active gentleman whose had a long history of gradually progressive increasing bilateral knee pain discomfort. Is been through extensive conservative treatment over the years which became less successful. He does right knee replaced a year ago and is recovered nicely from this. He elected proceed with left total knee arthroplasty. Description of Procedure Operative implants consist of: 1. Biomet Vanguard size 72.5 left posterior stabilized femoral component. 2. Biomet size 83 tibial tray. 3. 10 mm posterior stabilized polyethylene insert. 4. 34 x 8-1/2 all poly patella. The patient was taken the op room, identified, placed on the operating table in the supine position. All conductors were appropriately padded. IV antibiotics fibra anesthesia team. Spinal anesthetic and adductor canal block had been provided in the holding area. A left thigh turn was then placed. Left lower extremities then prepped and draped in usual sterile fashion. The left leg was elevated and exsanguinated with use of an Esmarch and a turn was placed at 300 mmHg. An anterior approach left knee was then performed to longitudinal incision centered over the patella. Sharp dissection was carried through subcutaneous tissue down the extensor mechanism. A medial parapatellar arthrotomy incision was made. Some subperiosteal dissection was carried out medially. The fat pad was dissected from Neath patella tendon. Lateral patellofemoral ligament was released. Patella subluxated laterally and the knee was flexed. The osteophytes taken off distal femur. The ACL and PCL were then released from distal femur and the tibia subluxated anteriorly. The external treatment LYMErix then placed on the anterior face of the tibia and adjusted 14 mm medially. The proximal tibial cut was made remove out of millimeter bone from most efficient aspect medial tibial plateau. Some osteophytes taken off medially. The tibia sized to a size 83. Attention drawn the femur. The distal femur examined the sharp drill. Intramedullary canal was suction. A left 6 degree valgus cutting guide was placed. The distal femoral cutting block was pinned in place. Distal femoral cut was made to take an additional 3 mm of bone distal femur. The femur was then sized to a size 72.5. The AP cutting block was pinned parallel to the epicondylar axis which was 5 degrees of external rotation. The anterior cut, anterior chamfer, posterior cut, posterior chamfer cuts were made. The box cutting guide was placed and adjust slight lateral box cut was made. The knee was flexed. The remnants of the medial and lateral menisci were excised. The osteophytes were taken off the posterior aspect the femur. A trial femoral component was placed. The tibial tray was pinned Emily external rotation and the drill and stem punch were used to create defect in proximal tibia for the tibial tray. The knee was then trialed and the 10 mm insert fit most appropriately. Attention drawn the patella. The patella was cleaned of all soft tissues. Patella thickness measured 26 mm in thickness was cut down to 15. Was sized to a size 34 patella. The lug holes were drilled for 34 patella. The lateral osteophytes removed. Patella button was placed. Knee was taken through range of motion patella tracked nicely with no thumbs test. Attention drawn to place the permanent components. Nupathe all trial components were removed. Bone plug was placed into this femur limit blood loss. A double batch Palacos G cement was mixed. A Biomet Vanguard size 72.5 left posterior stabilized femoral component, size 83 tibial tray, 10 mm posterior stabilized polyethylene insert, and a 34 x 8 and half all poly patella was then cemented in place. The knee was brought out into full extension till cement hardened. Final cement check was then performed. Pericapsular tissues were injected with total 100 cc of Ortho mix. Patient did receive 1 g tranexamic acid. The tourniquet was then let down for a final tourniquet time of 64 minutes. Hemostasis assured use electrocautery. Extensor Meclomen closed with combination 1 PDS suture #1 Vicryl suture in a [id number] fashion. Extensor Meclomen checked found to be intact with subcutaneous tissue then closed with 2 Dexon suture in a buried interrupted fashion skin was closed skin gabriel. Leg was then cleaned and dried a sterile dressing was Xeroform, 4 fours, sterile cast padding, Florencio bandage were applied. The patient was then transferred to the recovery room in stable condition. The patient tolerated procedure well and there were no complications. Brian Bardales, my physician business development assistant, was present for the entire procedure. His assistance was essential and required for appropriate patient positioning, prepping and draping, surgical exposure, performing the technical details of the operation, placement the implants, closure of the wound, and placement of the sterile bandage. I attest to the content of the Intraoperative Record and any orders documented therein. Any exceptions are noted below.
--- NOTE | 2024-06-27 10:31 | Anesthesiology Progress Note ---
Date of Service June 27, 2024 Anesthesia Post Procedure Vital Signs Vital Signs: Temp Pulse Resp BP Pulse Ox O2 Del Method O2 Flow Rate 06/27/24 10:00 65 14 111/62 94 Room Air 06/27/24 09:45 63 14 112/64 94 Room Air 06/27/24 09:30 36.5 C 70 18 114/64 95 Room Air 06/27/24 09:20 70 16 114/65 97 Room Air 06/27/24 09:10 76 14 118/66 95 Room Air 06/27/24 09:00 77 16 116/63 97 Room Air 06/27/24 08:52 36 C L 78 14 123/70 97 Oxymask 6 06/27/24 05:45 36.7 C 70 20 123/78 96 Room Air Transfer of Care Handoff Completed per policy Notes Mental Status: alert / awake / arousable Patient Amnestic to Procedure: Yes Nausea / Vomiting: adequately controlled Pain: adequately controlled Airway Patency, RR, SpO2: stable & adequate BP & HR: stable & adequate Hydration State: stable & adequate Neuraxial Anesthesia: was administered and sensory block is resolving Anesthetic Complications: no major complications apparent
[2024-06-27] MEDS ORDERED: ALUMINUM/MAGNESIUM SUSP 30 ML UDC PO PRN (10:39)
[2024-06-27] MEDS ORDERED: HYDROmorphone INJ 0.5 MG/0.5 ML SYR IV PRN (10:39)
[2024-06-27] MEDS ORDERED: diphenhydrAMINE Capsule 25 MG CAP PO PRN (10:39)
[2024-06-27] MEDS ORDERED: bisacodyL 10 MG SUPP PR PRN (10:39)
[2024-06-27] MEDS ORDERED: MAGNESIUM HYDROXIDE SUSP 30 ML UDC PO PRN (10:39)
[2024-06-27] MEDS ORDERED: NON-FORMULARY MEDICATION (Turmeric 400 mg Capsule) PO SCH (10:39)
[2024-06-27] MEDS ORDERED: SENNA 8.6 MG TAB PO SCH (10:39)
[2024-06-27] MEDS ORDERED: METOCLOPRAMIDE HCL INJ 5 MG/ML 2 ML VIAL IV PRN (10:39)
[2024-06-27] MEDS ORDERED: NALOXONE HCL 0.4 MG/1 ML VIAL/CARP IV PRN (10:39)
[2024-06-27] MEDS ORDERED: ACETAMINOPHEN 500 MG TAB PO SCH (10:39)
[2024-06-27] MEDS ORDERED: NON-FORMULARY MEDICATION (Multivitamin Tablet) PO SCH (10:39)
[2024-06-27] MEDS: GLUCOSAMINE SULFATE 500 MG CAP PO SCH (11:18)
[2024-06-27] MEDS: CYANOCOBALAMIN (B-12) 2,500 MCG TABLET SL SCH (11:18)
[2024-06-27] MEDS: TAMSULOSIN HCL 0.4 MG CAP PO SCH (11:19)
[2024-06-27] MEDS: MULTIVITAMIN TAB PO SCH (11:19)
[2024-06-27] MEDS: ASPIRIN 81 MG ECTAB PO SCH (11:20)
[2024-06-27] MEDS: CHOLECALCIFEROL 25 MCG (1000 UNITS) TAB PO SCH (11:20)
[2024-06-27] MEDS: DOCUSATE SODIUM 100 MG CAP PO SCH (11:21)
[2024-06-27] MEDS: KETOROLAC 30 MG/ML VIAL IV SCH (11:22)
[2024-06-27] MEDS: PSYLLIUM or GUAR GUM FIBER 4GM PACKET PO SCH (11:31)
--- NOTE | 2024-06-27 11:46 | XRay Report ---
XR knee LT 1 or 2V routine CLINICAL HISTORY: Surgical Post Op TECHNIQUE: 2 views of the left knee were obtained. Comparison: Comparison is made to knee radiographs 03/17/2024 FINDINGS: Patient is status post total knee arthroplasty with expected postsurgical changes including soft tiss ue swelling and subcutaneous emphysema. No periarticular lucency or hardware fracture is seen. IMPRESSION: Expected postoperative appearance status post placement of total knee arthroplasty. ACT 112: Negative or not required by law. Electronically signed by: Dwayne Salas M.D. 06/27/2024 11:39 AM
[2024-06-27] MEDS: TRANEXAMIC ACID / 0.7% NACL 1,000 MG/100 ML BAG IV SCH (14:21)
[2024-06-27] MEDS: oxyCODONE HCL IR 5 MG TAB (IMMEDIATE RELEASE) PO PRN (14:24)
[2024-06-27] MEDS: Scopolamine CHECK PATCH PLACEMENT SCH (16:33)
[2024-06-27] MEDS: ASCORBIC ACID 500 MG TAB PO SCH (17:49)
[2024-06-27] MEDS: SENNA 8.6 MG TAB PO SCH (20:32)
[2024-06-28 06:52] LABS: Hematocrit (blood only) 32.8 % (42.0-52.0); Hemoglobin 11.6 g/dl (14.0-18.0); Mean Corpuscular Hemoglobin 30.3 pg (25.0-34.0); Mean Corpuscular Hgb Conc 35.4 g/dL (32.0-36.0); Mean Corpuscular Volume 85.6 fL (80.0-100.0); Mean Platelet Volume 9.7 fL (9.4-12.4); Platelet Count 163 K/uL (130-400); RDW Coefficient of Variation 12.7 % (11.5-14.5); RDW Standard Deviation 39.4 fL (36.4-46.3); Red Blood Count 3.83 M/uL (4.70-6.10); White Blood Count 6.15 K/ul (4.8-10.8)
[2024-06-28 07:18] LABS: BUN Creatinine Ratio 17.5 (10-20); Calcium 9.1 mg/dl (8.6-10.3); Creatinine Clr Calc Pharmacy 109.9 ml/min; Potassium 3.8 mmol/L (3.5-5.1)
[2024-06-28 07:32] VITALS: RESP 18
--- NOTE | 2024-06-28 07:39 | Orthopedic Progress Note ---
Date of Service June 28, 2024 Assessment & Plan (1) Status post left knee replacement: Plan: 64-year-old gentleman postop day 1 from left knee replacement doing reasonably well. Pains been controlled. He is neurologically intact. Plan: 1. DVT prophylaxis including thigh-high teds, SCDs, aspirin twice a day. 2. PT/OT. Weight-bear as tolerated left total knee protocol. 3. Pain control doing okay with current pain regimen. 4. Disposition. Plan to discharge to home with some home health if he does okay in therapy today. Admission and Anticipated Discharge Date Admission Date: June 27, 2024 Subjective 64-year-old gentleman postop day 1 from a left knee replacement. He is doing pretty well. Had a bit more pain last night but doing little bit better this morning. No chest pain or shortness of breath. He did get a little dizzy when he got up last evening. Physical Exam Physical Exam: Physical examination was a pleasant middle-age male. Lying in bed talking to his . Examination of the left leg reveals the leg to be well aligned. Dressings clean dry and intact he can dorsiflex and plantarflex his foot appropriately. Can do a straight leg raise but takes quite a bit of effort and a bit uncomfortable. Respiratory: normal respiratory effort, lungs clear to auscultation Cardiovascular: RRR, no murmur, no edema Gastrointestinal (Abdomen): normal bowel sounds, soft, nontender, no hepatosplenomegaly Results & Data Vital Signs (Past 12 Hours) Vital Signs Temp Pulse Resp BP Pulse Ox O2 Del Method 06/28/24 07:31 36.5 C 61 18 104/64 96 Room Air 06/28/24 02:54 36.7 C 63 16 99/59 L 97 Room Air 06/27/24 23:09 36.6 C 60 18 101/68 97 Room Air Laboratory Results Hemoglobin is 11.6. Hematocrit 32.8. Electrolytes are stable.
[2024-06-28] MEDS: dexAMETHasone 10 MG in SYRINGE 0 ML IV SCH (08:56)
[2024-06-28 10:59] VITALS: BP 108/67; PULSE 54; TEMP 98.1; O2SAT 98
--- NOTE | 2024-07-01 12:50 | Discharge Summary ---
Date of Service July 01, 2024 Admission HPI (Per Admitting) . The patient is a 64-year-old gentleman now just about a year out from a right knee replacement who presents for surgical treatment of his left knee. Ricki a long history of bilateral knee pain discomfort describes gotten worse over time. Is been through extensive conservative treatment in the past which has become less successful. He had his right knee replaced about a year ago and is done well from this. He has continued to have have progressive left knee pain discomforts which are limiting his activities. He now like to proceed with surgical treatment of his left knee. Admission Exam (Per Admitting) . Physical examination was a healthy pleasant middle-age male. Looks in excellent health. Examination of the left knee reveal patient ambulates independently. His Varus alignment to his knee with some bone hypertrophy medially. He has about a 5 degree flexion contracture bends about 120. No instability. No particular pain with hip motion. He is tender with medial joint line with some bony hypertrophy there. Examination of the right knee reveals well-healed incision. Very mild swelling. Range of motion 0-1 20. No instability. No pain with hip motion. Principal Diagnosis Same as "Discharge Diagnosis" noted below under Discharge Instructions. Discharge Data Procedures Performed Operation Date: 06/27/24 07:00 Actual Procedures p Left Total Knee Arthroplasty(Left) - Jhonny Raza MD Ordered Studies 06/27/24 05:00 US - OR guided needle placemen Routine Hospital Course (1) Status post left knee replacement: This is a 64 year old patient admitted on 06/27/24 and underwent total knee arthroplasty. He tolerated the procedure well and there were no complications. Transferred to the PACU post op and later to the orthopedic floor for further care. He was given ancef for antibiotic prophylaxis. He was also given NELSY stockings, SCDs, and aspirin for DVT prophylaxis. Hemoglobin, hematocrit, and vital signs were monitored during his hospital stay and remained stable. Did not require any blood transfusions. There were no complications during his hospital stay. By post op day #1 the patient was tolerating a regular diet, pain was reasonably controlled with oral pain medicine, and he was participating in physical therapy. On post op day #1 the patient was discharged home and set up with home health care. He was given printed discharge instructions including prescriptions for extra strength tylenol, aspirin, cefadroxil, zofran, senokot, flomax, and oxycodone. Continue physical therapy, weight bearing as tolerated. Continue NELSY stockings. Follow up approximately 2 weeks post op or sooner if there are problems or concerns. Discharge Plan Discharge Items Patient Disposition: Home - Home Health Services Reason For Visit: Left Knee Degenerative Joint Disease Discharge Diagnosis: Left Knee Replacement Activity: Per Instructions section Weightbearing: Full weightbearing Non-emergency contact: Surgeon Call non-emergency contact if: you have any medication questions Follow-up/Referrals: Amadeo Story, RENEE-C [Primary Care Provider] - Diet: Regular Addtl Attending Provider Instructions: ACTIVITY RECOMMENDATIONS: Diet: * You may resume previous diet. Physical Therapy: * You will go to physical therapy three times each week for four to six weeks after your surgery in order to regain your knee range of motion and to retrain your knee to work properly. * It is just as important to make sure you are getting your knee perfectly straight as it is to regain your knee bend. * Taking a pain pill an hour before therapy can help you have a more productive and comfortable therapy session. Home Exercise: * You were shown a series of exercises (heel props, heel slides, etc.) in the hospital. Do these exercises three to four times each day including the exercises you were shown in physical therapy. Walking: * Get up and walk several times each day. For the first four weeks, try not to stand or walk for more than one hour at a time. If you do stand or walk for more than one hour, you will not hurt anything, but your knee and leg will likely swell. * As you feel comfortable, you may change from the walker or crutches to a cane and then to independent walking. MEDICATIONS: New Medicine: * You will likely be taking one or more of these medications: 1. Oxycodone - A quick and shorter-acting pain medication. Take one to two tablets every six hours to lessen your pain. 2. Aspirin - Thins your blood to lessen the chance of forming a blood clot. * The most common side effects of pain medicine and iron are nausea and constipation. If nausea or constipation is too much of a problem or if you have any questions about your new medicines or doses, call [facility] at . We will try to help you manage these issues. "VERY IMPORTANT TO READ AND REVIEW" Pain: * The immediate post-operative period after knee replacement surgery is often quite painful. * You are given a prescription for pain medicine. You should take it, as directed, when you need it, especially before physical therapy and before going to bed. Pain that interferes with sleep is very common and can last several months. * You will likely need pain medicine for the first four to six weeks. It will not stop all of the pain. The pain will lessen and as you feel better, you may change to milder pain medicine such as Tylenol. * The most common side effects of pain medicine are nausea and constipation, so don't take more than you need. SPECIAL CARE INSTRUCTIONS: TEDs/Elastic Stockings: * The white elastic stockings help limit swelling and prevent blood clots from forming in your legs. The more you wear them, the more they work. * Wear them for six weeks after knee replacement surgery and four weeks after partial knee replacement. Incision Site Care: * Remove dressing postoperative day 2 and then shower. Keep direct shower pressure off the incision site. * After showering, cover gabriel with dry gauze and change daily or more frequently if the dressing is getting saturated with drainage. * Use the NELSY stockings to hold dressing in place. DO NOT apply tape on the skin. * May completely stop using bandage if wound is dry and no drainage * Gabriel are removed between 2 and 3 weeks post-op. If your follow-up appointment is made before 2 weeks, please have your appointment re- scheduled. It is too early to remove the gabriel. Prevention of Infection: * Take antibiotics one hour before any dental cleaning, dental work, urological procedure, gastrointestinal procedure or any invasive surgery in order to prevent your new joint from getting infected. * You may get the antibiotics from the doctor performing the procedure or you may call our office at [phone] before and we will call in a prescription to the pharmacy of your choice. Things to Watch For: * Drainage from the incision site that occurs more than one week after your surgery. * Severely increased knee/leg pain or swelling. * Increased redness at the incision site. * Fever above 102 degrees Fahrenheit. * Unusual chest pain or shortness of breath. * Unusual pain or burning with urination. Call [facility] at [phone] with any of the above problems or if you have any questions about your medicines or recovery. FOLLOW UP VISIT: Make an appointment to see your doctor for approximately two weeks after surgery for a progress check and staple removal by calling the office at [phone]. Pending Studies at Discharge: No Stand-Alone Forms: My [facility] [employer], Smoking Cessation Medications and DC Order Prescriptions: Continued acetaminophen [Tylenol Extra Strength] 500 mg tablet 1,000 mg PO TID 30 Days Qty: 180 0RF Rx Instructions: Take 3 times per day to lessen pain. amoxicillin 500 mg tablet 2,000 mg PO ONCE Qty: 4 3RF Rx Instructions: 4 tabs 1 hour prior to procedure ondansetron 4 mg tablet,disintegrating 4 mg PO Q8 PRN (Reason: nausea) Qty: 20 1RF Rx Instructions: Take as needed for nausea sennosides [Senokot] 8.6 mg tablet 8.6 mg PO BID 14 Days Qty: 28 0RF Rx Instructions: Take two times a day to prevent/treat constipation acetaminophen [Tylenol Extra Strength] 500 mg tablet 1,000 mg PO TID 30 Days Qty: 180 0RF Rx Instructions: Take 3 times per day to lessen pain cefadroxil 500 mg capsule 500 mg PO BID 7 Days Qty: 14 0RF Rx Instructions: Take 1 cap twice a day to prevent infection tamsulosin [Flomax] 0.4 mg capsule 0.4 mg PO DAILY Qty: 7 0RF Rx Instructions: Begin night BEFORE surgery to prevent urinary retention aspirin [Noni Low Dose Aspirin] 81 mg tablet,delayed release (DR/EC) 81 mg PO BID 45 Days Qty: 90 0RF Rx Instructions: Take to prevent blood clots. oxycodone 5 mg tablet 5 - 10 mg PO Q6 PRN (Reason: pain) Qty: 40 0RF Rx Instructions: Take as needed for pain (DME) Wheeled Walker Misc See Rx Instructions .MEDSUPPLY Qty: 1 0RF Rx Instructions: As directed multivitamin Tablet 1 tab PO QAM glucosam-sod chondro-vit C-zita Tablet 1 tab PO QAM cholecalciferol (vitamin D3) [Vitamin D3] 50 mcg (2,000 unit) Capsule 100 mcg PO QAM cyanocobalamin (vitamin B-12) 3,000 mcg Tablet, Sublingual 6,000 mcg SUBLINGUAL QAM turmeric 400 mg Capsule 500 mg PO QAM Metamucil 3.4 gram/5.4 gram Powder 1 tbsp PO BID Rx Instructions: mix into at least 8 oz of water or juice before administering Admission Data Admit Date/Time: 06/27/24 08:48 Attending Provider: Jhonny Raza Admit Provider: Jhonny Raza Primary Care Provider: Amadeo Story Other Providers: [facility]; [facility] Other Interventions: Discharge Summary Assessment (RN) Last Done: 06/28/24 13:01
== END 2024-06-28 13:45 | disposition home health service (06) ==
LOC: 3E 05:13 → ASU 05:13